=== PATIENT | male | born 1970 | race Caucasian/White ===

== ENCOUNTER 2018-07-21 22:02 | Emergency (ER) | payer OTHER ==
[~2018-07-21] VITALS: Ht 187.9 cm; Wt 90.7 kg
[2018-07-21] MEDS ORDERED: VENTOLIN,PR2 MG/5 ML PO (22:19)
[2018-07-21] MEDS ORDERED: Theo-24 200MG200 MG PO (22:20)
[2018-07-21] MEDS ORDERED: SYMB160 INH (22:20)
== END 2018-07-22 01:10 | disposition home or self-care (01) ==
LOC: ED 22:02
DX: S40.022A Contusion of left upper arm, initial encounter (principal); M79.642 Pain in left hand; Z79.899 Other long term (current) drug therapy; W23.0XXA Caught, crushed, jammed, or pinched between moving objects, initial encounter; Y93.89 Activity, other specified; Y92.89 Other specified places as the place of occurrence of the external cause; Y99.8 Other external cause status

== ENCOUNTER 2020-03-20 15:06 | Emergency (ER) | payer OTHER ==
[~2020-03-20] VITALS: Ht 187.9 cm; Wt 89.8 kg
[~2020-03-20 15:06] MED LIST: SYMB160 INH; Theo-24 200MG200 MG PO; VENTOLIN,PR2 MG/5 ML PO
[2020-03-20 15:34] LABS: BASO # 0.1 10*3/uL (0.0-0.1); BASO % 1.1 % (0.0-1.0); EOS # 0.6 10*3/uL (0.0-0.4); EOS % 6.3 % (1.0-4.0); HEMATOCRIT 44.6 % (42.0-52.0); LYMPH # 2.4 10*3/uL (1.3-4.4); LYMPH % 27.6 % (27.0-41.0); MEAN CELL VOLUME 93.1 fl (80.0-94.0); MEAN CORPUSCULAR HGB 30.1 pg (27.0-31.0); MEAN CORPUSCULAR HGB CONC 32.3 g/dl (33.0-37.0); MEAN PLATELET VOLUME 9.6 fl (9.6-12.3); MONO # 0.6 10*3/uL (0.1-1.0); MONO % 6.9 % (3.0-9.0); NEUT # 5.1 10*3/uL (2.3-7.9); NEUT % 57.8 % (47.0-73.0); PLATELET COUNT AUTOMATED 311 10*3/uL (130-400); RED BLOOD COUNT 4.79 10*6/uL (4.50-5.90); RED CELL DISTRI WIDTH 13.3 % (0-14.5); WHITE BLOOD COUNT 8.8 10*3/uL (4.8-10.8)
[2020-03-20 15:45] LABS: ACT PARTIAL THROMBO TIME 28.1 SECONDS (20.0-32.1)
[2020-03-20 15:52] LABS: ALBUMIN 3.8 gm/dl (3.1-4.5); ALKALINE PHOSPHATASE 86 U/L (45-117); BUN 18 mg/dl (7-24); CHLORIDE 109 mmol/L (98-107); CREATININE 0.95 mg/dL (0.70-1.30); POTASSIUM 3.9 mmol/L (3.5-5.1); SGOT/AST 14 IU/L (3-35); SGPT/ALT 34 U/L (12-78); SODIUM 139 mmol/L (136-145); TOTAL PROTEIN 7.5 gm/dL (6.4-8.2)
[2020-03-20 15:55] LABS: LIPASE 58 U/L (73-393)
[2020-03-20 15:59] LABS: TROPONIN I < 0.015 ng/ml (<0.045)
[2020-03-20 15:59] LABS: ETHYL ALCOHOL < 3.0 mg/dl (<3)
[2020-03-20] MEDS ORDERED: VIBRAMYCIN100 MG PO (16:50)
[2020-03-20] MEDS ORDERED: PREDNISONE50 MG PO (16:50)
[2020-03-20] MEDS ORDERED: PROAIR HFA8.5 GM INH (16:50)
== END 2020-03-20 17:05 | disposition home or self-care (01) ==
LOC: ED 15:06
PROVIDERS: Emergency Medicine
DX: J44.1 Chronic obstructive pulmonary disease with (acute) exacerbation (principal); Z20.828 Contact with and (suspected) exposure to other viral communicable diseases; Z79.899 Other long term (current) drug therapy